=== PATIENT | female | born 1990 | race Caucasian/White ===

== ENCOUNTER 2017-10-26 16:57 | Emergency (ER) | payer OTHER ==
[~2017-10-26] VITALS: Ht 157.5 cm; Wt 68.0 kg
[~2017-10-26 16:57] MED LIST: ALBU90OI INH; AMOX50SU; Ativan0.5 MG PO; BIRTH CONTROL; Bactrim Ds Tab1 EACH PO; CEPH500 PO; CIPR500 PO; CITA20 PO; CYCL10 PO; DEXILANT 60 MG PO; DOXY100T53 PO; ESOM20 PO; FAMO20 PO; HYDACE5 PO; HYDACE5325 PO; HYDACE7.5L; HYDPAM25 PO; HYDR1TAB94 PO; IBUP200; IBUP800 PO; MEDR150I IM; Mucinex600 MG PO; OMEP20ER PO; ONDA4ODT MM; PENVK250 PO; PENVK500 PO; PHENA200 PO; PROM25 PO; Prednisone20 MG PO; RANI150 PO; RXHYD5325 PO; RXONDA4ODT MM; SUCR1 PO; SULTRIDS PO; TRAM50 PO; VENL37.5 PO; [UNRECOGNIZED DRUG - OTHER]
[2017-10-26] MEDS ORDERED: Robaxin500 MG PO (17:37)
== END 2017-10-26 18:10 | disposition home or self-care (01) ==
LOC: ER 16:57
DX: S16.1XXA Strain of muscle, fascia and tendon at neck level, initial encounter (principal); Z79.899 Other long term (current) drug therapy; Z79.52 Long term (current) use of systemic steroids; J45.909 Unspecified asthma, uncomplicated; F17.200 Nicotine dependence, unspecified, uncomplicated; X58.XXXA Exposure to other specified factors, initial encounter
CPT/HCPCS: 96372; 99283; J1885

== ENCOUNTER 2018-06-06 13:16 | Emergency (ER) | payer OTHER ==
[~2018-06-06] VITALS: Ht 157.5 cm; Wt 60.8 kg
[~2018-06-06 13:16] MED LIST changes: +Robaxin500 MG PO
[2018-06-06 13:57] LABS: Source, Urine Clean Catch
[2018-06-06 14:03] LABS: Appearance, Urine Cloudy (Clear); Bilirubin, Urine Neg (Neg); Blood, Urine 5+ (Neg); Color, Urine Yellow (P-Yellow); Glucose Qualitative, Urine Neg (Neg); Ketones, Urine Neg (Neg); Leukocyte Esterase, Urine 3+ (Neg); Nitrite, Urine Pos (Neg); Protein, Urine 3+ (Neg); Specific Gravity, Urine 1.015 (1.003-1.022); Urobilinogen, Urine 2+ (Normal)
[2018-06-06 14:18] LABS: Bacteria Many /hpf; Red Blood Cells, Urine TNTC /hpf (0-2); Squamous Epithelial Cells Few /hpf (Few); White Blood Cells, Urine TNTC /hpf (0-5)
[2018-06-06] MEDS ORDERED: CEPH500 PO (14:44)
== END 2018-06-06 15:01 | disposition home or self-care (01) ==
LOC: ER 13:16
PROVIDERS: Physician Assistant
DX: N39.0 Urinary tract infection, site not specified (principal); Z79.899 Other long term (current) drug therapy; J45.909 Unspecified asthma, uncomplicated; F17.210 Nicotine dependence, cigarettes, uncomplicated
CPT/HCPCS: 81001; 81025; 87077; 87086; 87186; 96372; 99284; J0696; J1885

== ENCOUNTER → 2021-08-13 | Outpatient (CLI) | payer OTHER | END | disposition home or self-care (01) | LOC: LAB SHORT 17:34 | DX: L53.8 Other specified erythematous conditions (principal) | CPT/HCPCS: 87081 ==

== ENCOUNTER → 2022-06-08 | Outpatient (CLI) | payer SELFPAY ==
[2022-06-09 09:23] LABS: Candida species (DNA Probe) Negative (NEGATIVE); G. vaginalis (DNA Probe) Positive (NEGATIVE); T. vaginalis (DNA Probe) Negative (NEGATIVE)
== END ==
LOC: LAB SHORT 16:09
PROVIDERS: Family Medicine
DX: Z11.3 Encounter for screening for infections with a predominantly sexual mode of transmission (principal); Z01.419 Encounter for gynecological examination (general) (routine) without abnormal findings; N76.0 Acute vaginitis
CPT/HCPCS: 87480; 87510; 87660